=== PATIENT | female | born 1980 | race African-American/Black ===

== ENCOUNTER → 2019-05-08 | Outpatient (CLI) | payer OTHER ==
--- NOTE | 2019-05-08 16:39 | KCIC ---
CHEST AP ONLY Clinical indications: Follow-up TB case COMPARISON: None available. Findings: Bilateral perihilar nodular lung infiltrates are seen. No cavitary mass is evident. No pleural effusion or pneumothorax is seen. The heart size is at the upper limits of normal. Mediastinum and pulmonary vasculature are unremarkable. There is mild prominence of both sadia which could be due to lymphadenopathy. IMPRESSION: Bilateral perihilar nodular lung infiltrates with bilateral hilar lymphadenopathy. Electronically signed by: Felix Linares MD (05/08/2019 4:36 PM) [place] [id number]
== END | disposition home or self-care (01) ==
LOC: KCIC 09:29
PROVIDERS: ATTEND Family Medicine
DX: R59.0 Localized enlarged lymph nodes (principal); R91.8 Other nonspecific abnormal finding of lung field
CPT/HCPCS: 71045